=== PATIENT | male | born 1970 | race Caucasian/White ===

== ENCOUNTER 2016-10-17 18:16 | Emergency (ER) | payer OTHER ==
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
[2016-10-17] MEDS ORDERED: Tetan/Diph/Pertus SYR(Tdap)* 0.5 ML SYR(BOOSTRIX) use SYR IM ONE (19:23)
[2016-10-17] MEDS ORDERED: Ibuprofen TAB* 600 MG PO ONE (19:42)
[2016-10-17 19:54] VITALS: BP 148/89
== END 2016-10-17 19:53 | disposition home or self-care (01) ==
LOC: ED 18:16
DX: S01.81XA Laceration without foreign body of other part of head, initial encounter (principal); V43.52XA Car driver injured in collision with other type car in traffic accident, initial encounter; Y93.9 Activity, unspecified; Y92.9 Unspecified place or not applicable; Y99.9 Unspecified external cause status
CPT/HCPCS: 12002; 90471; 90715; 99282; A9270-GY